=== PATIENT | male | born 1970 | race Caucasian/White ===

== ENCOUNTER 2022-01-27 08:51 | Outpatient (REF) | payer BC, SELFPAY ==
[2022-01-27 11:29] LABS: MANUAL DIFF FLAG NO
[2022-01-27 11:38] LABS: Basophils Percent Auto 0.5 % (0-2); Eosinophils Absolute Auto 0.2 X10*3/uL (0.0-0.4); Eosinophils Percent Auto 4.2 % (0-4); Hematocrit 47.1 % (42.0-52.0); Hemoglobin 15.9 g/dl (14.0-18.0); Imm Gran Abs Auto 0.01 X10*3/uL (0.00-0.03); Imm Gran Pct Auto 0.2 % (0.0-0.4); Lymphocytes Absolute Auto 1.2 X10*3/uL (1.2-4.9); Lymphocytes Percent Auto 21.2 % (20-40); Mean Corpuscular HGB Conc 33.8 g/dl (31.0-36.0); Mean Corpuscular Hemoglobin 31.4 pg (27.0-33.0); Mean Corpuscular Volume 92.9 fL (80.0-98.0); Mean Platelet Volume 10.1 fL (9.4-12.4); Monocytes Absolute Auto 0.5 X10*3/uL (0.1-1.2); Monocytes Percent Auto 7.9 % (2-11); Neutrophils Absolute Auto 3.8 x10*3/uL (2.0-8.3); Platelet Count 201 X10*3/uL (160-400); Red Blood Count 5.07 X10*6/uL (4.60-5.80); Red Cell Distribution Width 12.8 % (11.0-16.0); White Blood Count 5.7 X10*3/uL (4.8-10.8)
[2022-01-27 11:57] LABS: Alanine Aminotransferase 29 U/L (0-40); Albumin Level 4.1 g/dL (3.5-5.0); Alkaline Phosphatase 91 U/L (39-117); Anion Gap 11 (12-20); Aspartate Amino Transferase 28 U/L (5-37); Bilirubin Total 0.9 mg/dL (0.0-1.0); Blood Urea Nitrogen 11 mg/dL (9-16); Carbon Dioxide 26 mmol/L (22-29); Chloride 104 mmol/L (96-108); Cholesterol 181 mg/dL; Estimated Glomerular Filt Rate > 60; Glucose Fasting 127 mg/dL (60-99); HDL Cholesterol 28 mg/dL; LDL Cholesterol Calculated 124 mg/dl; Potassium 4.1 mmol/L (3.3-5.1); Sodium 137 mmol/L (135-145); Total Protein 7.3 g/dL (6.5-8.0); Triglycerides 148 mg/dL
[2022-01-27 12:20] LABS: TSH reflex Free T4 2.09 uIU/mL (0.32-4.0)
== END 2022-01-27 08:52 | disposition home or self-care (01) ==
LOC: HO.WFDLDS 08:51
PROVIDERS: Visit Provider Family Medicine
DX: Z00.00 Encounter for general adult medical examination without abnormal findings (principal)
CPT/HCPCS: 36415; 80053; 80061; 84443; 85025

== ENCOUNTER 2025-11-04 10:04 | Outpatient (AMB) | payer OTHER, SELFPAY ==
[2025-11-04 10:07] VITALS: BP 148/110; PULSE 98; O2SAT 98; BMI 38.5
--- NOTE | 2025-11-04 10:07 | A.OFFPC_ITS ---
Vital Signs 11/04/25 10:07 Height 5 ft 9 in Weight 261 lb BMI 38.5 BP 148/110 H Blood Pressure Location Rt brachial Position Sitting Pulse 98 Pulse Source Pulse Oximeter Pulse Oximetry (%) 98 Oxygen Delivery Method Room Air Intake Visit Reasons: Est Care/needs a new PCP/ CPE Allergies penicillin V Allergy (Mild, Verified 11/04/25 10:09) rash Medication List - Last Reconciled 11/04/25 by Jerome Batista MD baclofen 10 mg PO BEDTIME oxcarbazepine 300 mg PO BID Tobacco use date assessed: 11/04/25 Dental Screening Dental Screen Date: 11/04/25 Did you have a dental visit in the last 12 months?: Yes Did you have a dental problem in the last 6 months where you did not have access to dental care?: No Was dental information given to patient?: Patient has dentist HPI Est Care/needs a new PCP/ CPE HPI Details New Patient? ?? Prior PCP:? Last office visit/CPE:? Acute issue(s):? Trigeminal Neuralgia Fatigue Thyroid nodules w/ Neg Bx but elevated TPO ? MS Last visit to MS clinic they said no MS though pt says he never had lumbar punture to completely rule out. ?? PMHx: HTN, Thyroid nodules - Neg Bx FHx: Dad CAD & Early CA. 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 1. Little interest or pleasure in doing things: not at all 2. Feeling down, depressed, or hopeless: not at all 3. Trouble falling or staying asleep, or sleeping too much: several days 4. Feeling tired or having little energy: several days 5. Poor appetite or overeating: not at all 6. Feeling bad about yourself - or that you are a failure or have let yourself or your family down: not at all 7. Trouble concentrating on things, such as reading the newspaper or watching television: not at all 8. Moving or speaking so slowly that other people could have noticed. Or the opposite - being so fidgety or restless that you have been moving around a lot more than usual: not at all 9. Thoughts that you would be better off or of hurting yourself in some way: not at all Total score: 2 Depression Screening Interpretation: Positive Depression Screening Done: Yes 75588 - PHQ-9 Billing: Yes Source: Developed by Drs. Elpidio Lane, Charmaine Ferreira, Jeremy Campoverde and colleagues, with an educational minh from [employer]. Thrive Questionnaire Date Thrive assessed: 11/04/25 I am a: Patient What is your living situation today?: I have a steady place to live Within the past 12 months, did the food you bought not last and you didn't have the money to get more?: Never true Within the past 12 months, did you worry whether your food would run out before you got money to buy more?: Never true Do you have trouble paying for medicines?: No Do you have trouble getting transportation to medical appointments?: No Do you have trouble paying your heating and electricity bill?: No Do you have trouble taking care of your child, family member or friend?: No Do you have trouble with day-to-day activities such as bathing, preparing meals, shopping, managing finances, etc.?: No Are you currently unemployed and looking for a job?: No Are you interested in more education?: Yes Please select the resources that you would like help with: None Currently or been in a relationship where the following occur: No concerns reported THRIVE Score: 0 AUDIT C Alcohol Use Questionnaire (AUDIT-C) 1. How often do you have a drink containing alcohol?: 2-4 times a month 2. How many drinks containing alcohol do you have on a typical day when you are drinking?: 1 or 2 3. How often do you have six or more drinks on one occasion?: Never Total Score: 2 BATOOL-7 AMB Questionnaire BATOOL-7 Date BATOOL - 7 assessed: 11/04/25 Feeling nervous, anxious, or on edge: 1 = Several days Not being able to stop or control worryin = Not at all Worrying too much about different things: 0 = Not at all Trouble relaxin = Not at all Being so restless that it is hard to sit still: 1 = Several days Becoming easily annoyed or irritable: 1 = Several days Feeling afraid as if something awful might happen: 0 = Not at all Total BATOOL-7 score (0-4 normal; 5-9 mild; 10-14 moderate; 15-21 severe): 3 Source: Developed by Drs. Elpidio Lane, Charmaine Ferreira, Jeremy Campoverde and colleagues, with an educational minh from [employer]. BATOOL-7 Assessment Billing BATOOL-7 Assessment Tool: BATOOL-7 Assessment 14750 Review of Systems Const Denies chills, Denies fatigue, Denies fever(s), Denies headache(s) and Denies weakness ENT Denies dizziness and Denies headache(s) Card Denies chest pain, Denies lightheadedness, Denies dyspnea and Denies other (Palpitations) Resp Denies cough, Denies dyspnea, Denies wheezing and Denies other ( shortness of breath) Musc Denies numbness and Denies tingling Neuro Denies dizziness, Denies headache(s), Denies numbness, Denies tingling, Denies paresthesias and Denies weakness Psych Denies anxiety and Denies depression Endo Denies fatigue Aller/Immun Denies wheezing Physical exam (Primary Care) Vital Signs: Last Vital Signs Pulse 98 11/04/25 10:07 BP 148/110 H 11/04/25 10:07 Pulse Ox 98 11/04/25 10:07 Oxygen Delivery Method Room Air 11/04/25 10:07 BMI result Body Mass Index 38.5 Tobacco/Smoking Status: Tobacco use Status Tobacco use date assessed 11/04/25 11/04/25 10:11 Patient Tobacco Use Status Never used Tobacco 11/04/25 10:11 e-Cigarette/Vaping Use Never Used 11/04/25 10:11 PHQ-9: PHQ-9 Score PHQ-9: Total score 2 11/04/25 10:15 Depression Screening Interpretation: Positive Thrive Assessment: Date of Thrive Assessment Date Thrive assessed 11/04/25 11/04/25 10:13 Currently or been in a relationship where the following occur: No concerns reported Const General: no acute distress and well developed Nutritional Appearance: well nourished Orientation/consciousness: patient oriented x3 HENMT Head: Yes normocephalic and Yes atraumatic Eyes General: appearance normal, both eyes and all related structures Pupils: Equal, round and reactive pupils present EOM: EOMs intact bilaterally Resp Effort & Inspection: normal respiratory effort Auscultation: clear to auscultation bilaterally Cardio Rate: regular rate Rhythm: regular rhythm Heart sounds: S1 normal heart sound present, S2 normal heart sound present, no gallops, no murmurs and no rubs Neuro General: patient oriented x3 and gait normal Cranial nerves: Yes CN's II-XII intact bilaterally and Yes Equal, round and reactive pupils present Psych Affect: normal affect Coding Level of Care Code New Pt Level 3 (58554) Diagnoses Trigeminal neuralgia G50.0 Hypertension I10 Laboratory examination ordered as part of a routine general medical examination Z00.00 Thyroid nodule E04.1 Fatigue R53.83 Screening for colon cancer Z12.11 Weakness of right lower extremity R29.898 Additional Codes BATOOL-7 Assessment Billing - BATOOL-7 Assessment Tool: BATOOL-7 Assessment 56872 ([id number]) PHQ-9 - 38325 - PHQ-9 Billing: Yes ([id number]) Assessment & Plan Assessment & Plan (1) Trigeminal neuralgia: Code(s): G50.0 - Trigeminal neuralgia Category: Medical Plan: Currently on oxcarbazepine the still gets breakthrough pain which is severe Will try adding Lyrica Follow-up with neurosurgeon. However, patient has not seen neurologist - will refer to Neurology. There was some question of MS previously. Last neurology to help ensure this is ruled out and to help with treatment of likely trigeminal neuralgia. He does have some mild weakness at right lower extremity. (2) Hypertension: Code(s): I10 - Essential (primary) hypertension Category: Medical Plan: Blood pressure is too high. Goal is less than 140/90 Some of this may be due to pain however his blood pressure has been issue previously as well Start hydrochlorothiazide (3) Laboratory examination ordered as part of a routine general medical examination: Code(s): Z00.00 - Encounter for general adult medical examination without abnormal findings Category: Medical Plan: Check labs (4) Thyroid nodule: Code(s): E04.1 - Nontoxic single thyroid nodule Category: Medical Plan: Patient notes thyroid nodules and biopsies have been negative However he also notes that his TPO was abnormal and his mom has a history of Trang's Check labs Awaiting records (5) Fatigue: Code(s): R53.83 - Other fatigue Category: Medical Plan: Checking labs Could be secondary to thyroid disorder or MS though this has not been diagnosed, medications or other Will continue to monitor (6) Screening for colon cancer: Code(s): Z12.11 - Encounter for screening for malignant neoplasm of colon Category: Medical Plan: Due for colonoscopy Referred to GI (7) Weakness of right lower extremity: Code(s): R29.898 - Other symptoms and signs involving the musculoskeletal system Category: Medical Plan: Weakness at right lower extremity Unclear cause He has symptoms consistent with trigeminal neuralgia however MS has not been fully ruled out Start physical therapy Referring him to Neurology Orders: Orders Lipid Panel Today Z00.00 - Encounter for general adult medical examination without abnormal findings Microalbumin, Random (w Creat) Today I10 - Essential (primary) hypertension Vitamin D 25-OH Total Today E55.9 - Vitamin D deficiency, unspecified Free T4 (Free Thyroxine) Today E03.9 - Hypothyroidism, unspecified, G50.0 - Trigeminal neuralgia Thyroid Stimulating Hormone Today E03.9 - Hypothyroidism, unspecified, G50.0 - Trigeminal neuralgia Triiodothyronine T3 Total Today E03.9 - Hypothyroidism, unspecified, G50.0 - Trigeminal neuralgia Oxcarbazepine Today G50.0 - Trigeminal neuralgia Comprehensive [place]. Panel Fast Today Z00.00 - Encounter for general adult medical examination without abnormal findings Complete Blood Count Auto Diff Today Z00.00 - Encounter for general adult medical examination without abnormal findings Prostate Specific Antigen Scr Today Z12.5 - Encounter for screening for malignant neoplasm of prostate UA CC w/rflx Micro + Cult Today Z00.00 - Encounter for general adult medical examination without abnormal findings Vitamin B12 and Folate Today E53.8 - Deficiency of other specified B group vitamins Thyroid Peroxidase Antibodies Today G50.0 - Trigeminal neuralgia PT Evaluation and Treatment Today R29.898 - Other symptoms and signs involving the musculoskeletal system Referrals Neurology Referral G50.0 - Trigeminal neuralgia, R29.898 - Other symptoms and signs involving the musculoskeletal system Gastroenterology Referral Z12.11 - Encounter for screening for malignant neoplasm of colon Medications: New hydrochlorothiazide 25 mg PO QAM 90 tabs 3RF 90 days I10 - Essential (primary) hypertension pregabalin 50 mg PO BID 60 caps 0RF 30 days
== END 2025-11-04 10:54 | disposition home or self-care (01) ==
PROVIDERS: PCP Family Medicine; Visit Provider Family Medicine
DX: G50.0 Trigeminal neuralgia (principal); I10 Essential (primary) hypertension; Z00.00 Encounter for general adult medical examination without abnormal findings; E04.1 Nontoxic single thyroid nodule; R53.83 Other fatigue; Z12.11 Encounter for screening for malignant neoplasm of colon; R29.898 Other symptoms and signs involving the musculoskeletal system

== ENCOUNTER → 2025-11-04 10:04 | Outpatient (BNVA) | payer OTHER, SELFPAY | PROVIDERS: PCP Family Medicine; Visit Provider Family Medicine | DX: Z00.00 Encounter for general adult medical examination without abnormal findings (principal); Z12.11 Encounter for screening for malignant neoplasm of colon; G50.0 Trigeminal neuralgia; I10 Essential (primary) hypertension; E04.1 Nontoxic single thyroid nodule; R53.83 Other fatigue; R29.898 Other symptoms and signs involving the musculoskeletal system | CPT/HCPCS: 96127 ==